=== PATIENT | female | born 1980 | race Caucasian/White ===

== ENCOUNTER 2025-06-20 15:10 | Emergency (ER) | payer OTHER ==
[~2025-06-20] VITALS: Ht 167.6 cm; Wt 99.8 kg
[2025-06-20] MEDS ORDERED: FLUT16SP16 BNOSTRILS (15:42)
[2025-06-20] MEDS ORDERED: PSEU120T99 PO (15:42)
[2025-06-20 15:53] VITALS: BP 129/91; TEMP 98; O2SAT 99
[2025-06-20] MEDS ORDERED: GUAI5SYR PO (16:01)
== END 2025-06-20 16:08 | disposition home or self-care (01) ==
LOC: ER 15:33
DX: J01.90 Acute sinusitis, unspecified (principal)
CPT/HCPCS: 71045-TC